=== PATIENT | male | born 1990 | race Caucasian/White ===

== ENCOUNTER 2018-12-29 01:46 | Emergency (ER) | payer SELFPAY ==
[2018-12-29] MEDS ORDERED: Ibuprofen 800 MG TAB ONE (03:11)
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
--- NOTE | 2018-12-29 07:34 | CT ---
CT OF HEAD NONCONTRAST: INDICATION: Posttraumatic pain. COMPARISON: No prior imaging comparison available. FINDINGS: The ventricular system is normal in size. Septum pellucidum and third ventricle are midline. No dep ressed calvarial fracture. Mild mucosal prominence of the paranasal sinuses is seen. IMPRESSION: No acute intracranial hemorrhage or mass effect. POS: GORDO
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
== END 2018-12-29 03:20 ==
LOC: NAV ERS 01:46
DX: S00.03XA Contusion of scalp, initial encounter (principal); F10.129 Alcohol abuse with intoxication, unspecified; F41.9 Anxiety disorder, unspecified; F17.200 Nicotine dependence, unspecified, uncomplicated; V89.2XXA Person injured in unspecified motor-vehicle accident, traffic, initial encounter
CPT/HCPCS: 70450; 70486; 72125